=== PATIENT | male | born 1995 | race African-American/Black ===

== ENCOUNTER 2017-01-10 22:42 | Emergency (ER) | payer MEDICAID, OTHER ==
[~2017-01-10] VITALS: Ht 177.8 cm; Wt 72.6 kg
[2017-01-10] MEDS ORDERED: SODIUM CHLORIDE 0.9% 1,000 ML IVB ONE (22:52)
[2017-01-10] MEDS ORDERED: NALOXONE HCL 1MG/ML 2ML SYRINGE IV ONE (23:00)
[2017-01-10 23:09] LABS: Basophils # (auto) 0 uL; Basophils % (auto) 0.4 % (0.0-2.0); Eosinophils # (auto) 0 uL; Hematocrit 50.3 % (41.0-53.0); Hemoglobin 16.8 g/dL (13.5-17.5); Lymphocytes # (auto) 1.4 uL; Lymphocytes % (auto) 20.3 % (10.0-50.0); Mean Corpuscular Hgb Conc. 33.5 g/dL (32.0-36.0); Mean Corpuscular Volume 95.4 fL (80.0-100.0); Monocytes # (auto) 0.3 uL; Monocytes % (auto) 4.5 % (0.0-12.0); Neutrophils # (auto) 5.1 uL; Neutrophils % (auto) 74.8 % (37.0-80.0); Platelet Count (auto) 298 10^3/uL (140-450); Red Cell Distribution Width 15.6 % (11.6-16.0); White Blood Cell 6.8 10^3/uL (4.4-10.8)
[2017-01-10 23:30] LABS: BUN/Creatinine Ratio 13.2; Calcium 8.8 mg/dL (8.5-10.1); Potassium 5.2 mmol/L (3.5-5.1)
[2017-01-10 23:33] LABS: Bilirubin, Total 0.5 mg/dL (0.2-1.0); Total Protein 8.6 g/dL (6.4-8.2)
[2017-01-11 02:50] VITALS: BP 122/77
[2017-01-11] MEDS ORDERED: THIAMINE INJ 100 MG, MULTIPLE VITAMIN 10 ML, FOLIC ACID 1 MG, MAGNESIUM SULF SDV 50% 8 ... IV SCH ×5 (12:00)
== END 2017-01-11 03:11 | disposition home or self-care (01) ==
LOC: EDBD 22:42 → ER 22:44
DX: G92 Toxic encephalopathy (principal); R41.82 Altered mental status, unspecified; F10.129 Alcohol abuse with intoxication, unspecified; F12.10 Cannabis abuse, uncomplicated; F14.10 Cocaine abuse, uncomplicated
CPT/HCPCS: 36415; 80053; 80320; 85025; 93005; 94761; 96360

== ENCOUNTER 2023-05-02 15:23 | Emergency (ER) | payer MEDICAID, OTHER ==
[~2023-05-02] VITALS: Ht 167.6 cm; Wt 57.4 kg
[2023-05-02 15:54] LABS: Hematocrit 44.5 % (41.0-53.0); Hemoglobin 15.2 g/dL (13.5-17.5); Mean Corpuscular Hemoglobin 33.3 pg (28.0-32.0); Mean Corpuscular Hgb Conc. 34.1 g/dL (32.0-36.0); Mean Corpuscular Volume 97.8 fL (80.0-100.0); Red Blood Cells 4.55 10^6/uL (4.5-5.90); Red Cell Distribution Width 13.2 % (11.8-14.3); White Blood Cell 3.5 10^3/uL (4.4-10.8)
[2023-05-02 16:08] LABS: Albumin 4.1 g/dL (3.4-5.0); Potassium 3.4 mmol/L (3.5-5.1)
[2023-05-02 16:09] LABS: Urine Bacteria NONE SEEN /hpf (None Seen); Urine Blood Negative /uL (Negative); Urine Specific Gravity 1.001 (1.001-1.035); Urine WBC <1 /hpf (0 - 3)
[2023-05-02 16:11] LABS: Band Neutrophils % (manual) 0; Basophils % (manual) 0 (0.0-2.0); Blast Cells 0; Eosinophils % (manual) 0 (0-7); Metamyelocytes % 0; Myelocytes % 0; Promyelocytes % 0; Reactive Lymphocytes 0
[2023-05-02 16:12] LABS: BUN/Creatinine Ratio 8.2 (10.0-20.0); Bilirubin, Total 0.8 mg/dL (0.2-1.0); Total Protein 8.3 g/dL (6.4-8.2)
[2023-05-02 16:44] LABS: Lymphocytes % (manual) 39 (10.0-50.0); Monocytes % (manual) 19 (0-12)
[2023-05-02] MEDS ORDERED: FAMO20TA10 PO (18:11)
[2023-05-02] MEDS ORDERED: ZOFR4T PO (18:11)
[2023-05-02] MEDS ORDERED: SODIUM CHLORIDE 0.9% 1,000 ML IV ONE (18:15)
[2023-05-02] MEDS ORDERED: MORPHINE SULFATE 4 MG/ML SYR/VIAL IV ONE (18:15)
[2023-05-02] MEDS ORDERED: ONDANSETRON HCL 4 MG/2 ML VIAL IV ONE (18:15)
[2023-05-02] MEDS ORDERED: PANTOPRAZOLE 40 MG/10 ML VIAL INJ IV ONE (18:15)
[2023-05-02 18:45] VITALS: TEMP 98.2; O2SAT 98
[2023-05-02 19:09] VITALS: BP 122/76; PULSE 86; RESP 16
== END 2023-05-02 18:12 | disposition home or self-care (01) ==
LOC: ER 15:23
DX: K29.70 Gastritis, unspecified, without bleeding (principal); K76.0 Fatty (change of) liver, not elsewhere classified; F10.10 Alcohol abuse, uncomplicated; F12.10 Cannabis abuse, uncomplicated; F14.10 Cocaine abuse, uncomplicated
CPT/HCPCS: 36415; 74176; 80053; 81001; 83690; 85007; 85027; 96374; 96375; 99285; C9113; J2270; J2405; J7030